=== PATIENT | female | born 2000 | race African-American/Black ===

== ENCOUNTER 2019-03-31 22:52 | Emergency (ER) | payer BC ==
[~2019-03-31] VITALS: Ht 157.5 cm; Wt 117.7 kg
--- NOTE | 2019-03-31 23:39 | NUR ---
PT PRESENTED WITH C/O ABDOMEN PAIN AFTER ATE SOMETHING, THEN HAVING SOB AND BODY SHAKY. MONITORS APPLIED, SIDERAILS UP X2, CALL LIGHT WITHIN REACH
--- NOTE | 2019-04-01 00:13 | NUR ---
PT UP TO RR WITH STEADY GAIT
--- NOTE | 2019-04-01 00:19 | NUR ---
LUNCH RN: REPORT OF PT FROM STARR MCBRIDE. ASSUMING CARE OF PT AT THIS TIME.
[2019-04-01 00:42] LABS: BASOPHILS # (AUTO) 0.05 x10^3/uL (0-0.3); BASOPHILS % (AUTO) 1 % (0-1); EOSINOPHILS # (AUTO) 0.01 x10^3/uL (0-0.8); EOSINOPHILS % (AUTO) 0 % (1-7); LYMPHOCYTES # (AUTO) 2.63 x10^3/uL (1-6.1); LYMPHOCYTES % (AUTO) 36 % (22-44); MD NO; MEAN CORPUSCULAR HEMOGLOBIN 29.2 pg (27.0-34.8); MEAN CORPUSCULAR HGB CONC 33.4 g/dL (32.4-35.8); MEAN CORPUSCULAR VOLUME 87.6 fL (80-100); MEAN PLATELET VOLUME 9.2 fL (7.4-10.4); MONOCYTES # (AUTO) 0.38 x10^3/uL (0-1.4); MONOCYTES % (AUTO) 5 % (2-9); NEUTROPHILS # (AUTO) 4.33 x10^3/uL (1.8-8.0); NEUTROPHILS % (AUTO) 59 % (42-75); PLATELET COUNT 345 x10^3/uL (130-400); RED BLOOD COUNT 4.94 x10^6/uL (3.82-5.3); RED CELL DISTRIBUTION WIDTH 13.8 % (9.6-15.2)
[2019-04-01 00:55] LABS: ALANINE AMINOTRANSFERASE 21 U/L (12-78); ALBUMIN 3.8 g/dL (3.4-5.0); ANION GAP 8 mmol/L (5-15); CALCIUM 9.4 mg/dL (8.5-10.1); CHLORIDE 110 mmol/L (98-107); CREATININE 0.94 mg/dL (0.55-1.02)
[2019-04-01 00:59] LABS: ALKALINE PHOSPHATASE 64 U/L (45-117); BILIRUBIN,TOTAL 0.3 mg/dL (0.2-1.0); TOTAL PROTEIN 7.6 g/dL (6.4-8.2)
--- NOTE | 2019-04-01 01:03 | NUR ---
LUNCH RN: PT AMBULATES TO RESTROOM WITH STEADY GAIT WITH URINE CUP FOR UA.
--- NOTE | 2019-04-01 01:10 | NUR ---
PT RESTING ON GURNEY, MONITORS IN PLACE, DENIES NEEDS, CALL LIGHT WITHIN REACH. URINE SAMPLE TAKEN TO LAB
[2019-04-01 01:28] LABS: MICROSCOPIC NOT IND
[2019-04-01 01:30] LABS: CULTURE INDICATED? NO
--- NOTE | 2019-04-01 01:34 | NUR ---
pt to ultrasound
[2019-04-01 02:30] VITALS: BP 135/69
== END 2019-04-01 03:05 | disposition home or self-care (01) ==
LOC: ED 23:58
DX: R10.31 Right lower quadrant pain (principal); F45.8 Other somatoform disorders; R11.2 Nausea with vomiting, unspecified; J45.909 Unspecified asthma, uncomplicated
CPT/HCPCS: 36415; 76856; 80053; 81003; 84703; 85025; 93005; 99284